=== PATIENT | male | born 1955 | race Caucasian/White ===

== ENCOUNTER 2016-07-12 08:26 | Outpatient (CLI) | payer MEDICAID | END 2016-07-12 08:27 | disposition home or self-care (01) | DX: R73.01 Impaired fasting glucose (principal); E29.1 Testicular hypofunction; E78.5 Hyperlipidemia, unspecified; E03.9 Hypothyroidism, unspecified ==

== ENCOUNTER 2017-02-14 15:03 | Outpatient (CLI) | payer MEDICAID | END 2017-02-14 15:04 | LOC: LAB.S 15:03 | PROVIDERS: ATTEND Nurse Practitioner Family | DX: E29.1 Testicular hypofunction (principal) | CPT/HCPCS: 36415; 84403 ==

== ENCOUNTER 2017-03-28 14:16 | Outpatient (CLI) | payer MEDICAID | END 2017-03-28 14:17 | disposition home or self-care (01) | LOC: LAB.S 14:16 | PROVIDERS: ATTEND Nurse Practitioner Family | DX: E29.1 Testicular hypofunction (principal) | CPT/HCPCS: 36415; 84403 ==

== ENCOUNTER 2017-11-14 09:53 | Outpatient (CLI) | payer MEDICAID | END 2017-11-14 09:54 | disposition home or self-care (01) | LOC: LAB.S 09:53 | PROVIDERS: ATTEND Nurse Practitioner Family | DX: E29.1 Testicular hypofunction (principal); Z51.81 Encounter for therapeutic drug level monitoring; Z79.899 Other long term (current) drug therapy | CPT/HCPCS: 36415; 84403 ==

== ENCOUNTER 2018-01-09 08:59 | Outpatient (CLI) | payer MEDICAID ==
[2018-01-09 19:15] LABS: ALBUMIN 4.8 g/dL (3.2-5.5); ALBUMIN/GLOBULIN RATIO 1.5 (1.0-2.2); ALKALINE PHOSPHATASE 61 IU/L (42-121); ALT ALANINE AMINOTRANSFERASE 33 IU/L (10-60); AST ASPARTATE AMINOTRANSFERASE 31 IU/L (10-42); BILIRUBIN,TOTAL 2.6 mg/dL (0.2-1.0); BUN - BLOOD UREA NITROGEN 17 mg/dL (6-20); CHOL/HDL RATIO 4.3 (<5.0); CHOLESTEROL 203 mg/dL; CREATININE 1.2 mg/dL (0.6-1.2); GFR - MDRD 61 (>89); HDL CHOLESTEROL 47 mg/dL; LDL CHOLESTEROL,CALCULATED 127 mg/dL; LDL/HDL RATIO 2.7 (<3.6); VLDL CHOLESTEROL 29 mg/dL
[2018-01-09 19:17] LABS: CALCIUM 9.5 mg/dL (8.5-10.3); CARBON DIOXIDE - CO2 27 mmol/L (21-32); CHLORIDE 101 mmol/L (101-111); GLUCOSE 108 mg/dL (70-100); SODIUM 137 mmol/L (135-145)
== END 2018-01-09 09:00 | disposition home or self-care (01) ==
LOC: LAB.S 08:59
PROVIDERS: ATTEND Nurse Practitioner Family
DX: E78.5 Hyperlipidemia, unspecified (principal); R73.01 Impaired fasting glucose; Z12.5 Encounter for screening for malignant neoplasm of prostate
CPT/HCPCS: 36415; 80053; 80061; 83721; 84153

== ENCOUNTER 2019-07-24 07:18 | Outpatient (CLI) | payer MEDICAID ==
[2019-07-24 07:49] LABS: ALBUMIN 4.4 g/dL (3.2-5.5); ALBUMIN/GLOBULIN RATIO 1.3 (1.0-2.2); ALKALINE PHOSPHATASE 70 IU/L (42-121); ALT ALANINE AMINOTRANSFERASE 31 IU/L (10-60); AST ASPARTATE AMINOTRANSFERASE 28 IU/L (10-42); BUN - BLOOD UREA NITROGEN 20 mg/dL (6-20); CALCIUM 9.1 mg/dL (8.5-10.3); CARBON DIOXIDE - CO2 24 mmol/L (21-32); CHLORIDE 105 mmol/L (101-111); CHOL/HDL RATIO 4.5 (<5.0); CHOLESTEROL 193 mg/dL; CREATININE 1.3 mg/dL (0.6-1.2); GLUCOSE 128 mg/dL (70-100); HDL CHOLESTEROL 43 mg/dL; LDL CHOLESTEROL,CALCULATED 117 mg/dL; LDL/HDL RATIO 2.7 (<3.6); SODIUM 137 mmol/L (135-145); TOTAL PROTEIN 7.8 g/dL (6.7-8.2); VLDL CHOLESTEROL 33 mg/dL
== END 2019-07-24 07:19 | disposition home or self-care (01) ==
LOC: LAB 07:18
PROVIDERS: ATTEND Internal Medicine
DX: E78.5 Hyperlipidemia, unspecified (principal); Z12.5 Encounter for screening for malignant neoplasm of prostate; E03.9 Hypothyroidism, unspecified
CPT/HCPCS: 36415; 80053; 80061; 83721; 84153; 84443

== ENCOUNTER 2020-07-16 08:29 | Outpatient (CLI) | payer MEDICARE, MEDICAID ==
[2020-07-16 08:55] LABS: BASOPHILS # (AUTO) 0.1 10^3/uL (0.0-0.1); BASOPHILS % (AUTO) 0.9 %; EOSINOPHILS # (AUTO) 0.3 10^3/uL (0.0-0.7); HCT - HEMATOCRIT 52.4 % (42.0-52.0); HGB - HEMOGLOBIN 18.1 g/dL (14.0-18.0); LYMPHOCYTES # (AUTO) 1.4 10^3/uL (1.5-3.5); LYMPHOCYTES % (AUTO) 19.3 %; MEAN CORPUSCULAR HEMOGLOBIN 30.3 pg (27.0-31.0); MEAN CORPUSCULAR HGB CONC 34.5 g/dL (32.0-36.0); MEAN CORPUSCULAR VOLUME 87.6 fL (80.0-94.0); MEAN PLATELET VOLUME 8.8 fL (7.4-11.4); MONOCYTES # (AUTO) 0.8 10^3/uL (0.0-1.0); MONOCYTES % (AUTO) 11.2 %; NEUTROPHILS # (AUTO) 4.5 10^3/uL (1.5-6.6); NEUTROPHILS % (AUTO) 63.7 %; PLT - PLATELET COUNT 262 10^3/uL (130-450); RED BLOOD COUNT 5.98 10^6/uL (4.70-6.10); RED CELL DISTRIBUTION WIDTH 12.9 % (12.0-15.0)
[2020-07-16 09:13] LABS: ALBUMIN 4.8 g/dL (3.2-5.5); ALBUMIN/GLOBULIN RATIO 1.4 (1.0-2.2); ALKALINE PHOSPHATASE 59 IU/L (42-121); ALT ALANINE AMINOTRANSFERASE 36 IU/L (10-60); AST ASPARTATE AMINOTRANSFERASE 36 IU/L (10-42); BUN - BLOOD UREA NITROGEN 14 mg/dL (6-20); CALCIUM 9.7 mg/dL (8.5-10.3); CARBON DIOXIDE - CO2 23 mmol/L (21-32); CHLORIDE 105 mmol/L (101-111); CHOLESTEROL 202 mg/dL; CREATININE 1.2 mg/dL (0.6-1.2); GFR - MDRD 61 (>89); GLUCOSE 123 mg/dL (70-100); HDL CHOLESTEROL 51 mg/dL; LDL CHOLESTEROL,CALCULATED 131 mg/dL; LDL/HDL RATIO 2.6 (<3.6); POTASSIUM 4.1 mmol/L (3.5-5.0); SODIUM 138 mmol/L (135-145); TOTAL PROTEIN 8.2 g/dL (6.7-8.2); TRIGLYCERIDES 102 mg/dL; VLDL CHOLESTEROL 20 mg/dL
[2020-07-16 09:24] LABS: THYROID STIMULATING HORMONE 3.01 uIU/mL (0.34-5.60)
== END 2020-07-16 08:30 | disposition home or self-care (01) ==
LOC: LAB 08:29
PROVIDERS: ATTEND Internal Medicine
DX: E78.5 Hyperlipidemia, unspecified (principal); Z79.899 Other long term (current) drug therapy; E29.1 Testicular hypofunction; E03.9 Hypothyroidism, unspecified
CPT/HCPCS: 36415; 80053; 80061; 81599; 83721; 84402; 84403; 84443; 85025